=== PATIENT | female | born 2000 | race Caucasian/White ===

== ENCOUNTER → 2019-07-22 10:44 | Outpatient (CLI) | payer OTHER, SELFPAY ==
--- NOTE | 2019-07-22 | DI.CT.S_ITS ---
PROCEDURE: CT SINUS SCREEN WO CON INDICATIONS: Other chronic sinusitis TECHNIQUE: Noncontrast 3.0 mm axial images acquired from the frontal sinuses to the mid-sella, with coronal and sagittal reformats. For radiation dose reduction, the following was used: automated exposure control, adjustment of mA and/or kV according to patient size. COMPARISON: None. FINDINGS: Image quality: Excellent. Maxillary Sinuses: No bony remodeling or destruction. Sinuses are clear. Ethmoid Air Cells: No bony remodeling or destruction. Sinuses are clear. Sphenoid Sinuses: No bony remodeling or destruction. Sinuses are clear. Frontal Sinuses: No bony remodeling or destruction. Sinuses are clear. Ostiomeatal Complexes: Ostiomeatal complexes are patent. No Kamran cells. Miscellaneous: Visualized intra-orbital contents are normal. No tex bullosa or paradoxical turbinate curvature. There is mild to moderate leftward nasal septal deviation. IMPRESSION: No significant active paranasal sinus disease is seen. [id number] leftward nasal septal deviation is noted. Dictated by: Andres Hogan M.D. on 07/22/2019 at 10:12 Approved by: Andres Hogan M.D. on 07/22/2019 at 10:13
== END ==
PROVIDERS: PCP Family Medicine; Visit Provider Otolaryngology
DX: J32.8 Other chronic sinusitis (principal); J34.2 Deviated nasal septum
CPT/HCPCS: 70486

== ENCOUNTER → 2020-12-16 16:55 | Outpatient (CLI) | payer OTHER, SELFPAY ==
[2020-12-16] MEDS: COVID-19 VACC #1, MRNA(MOD) 100 MCG/0.5 ML VIAL IM (17:03)
== END ==
PROVIDERS: PCP Family Medicine; Visit Provider Internal Medicine
DX: Z23 Encounter for immunization (principal)
CPT/HCPCS: 0011A; 91301

== ENCOUNTER 2022-12-26 22:15 | Emergency (ER) | payer OTHER, SELFPAY ==
[2022-12-26 22:41] VITALS: BP 123/62; PULSE 65; RESP 16; TEMP 36.6; O2SAT 99; BMI 26.6
--- NOTE | 2022-12-27 00:29 | ED.WOUNDLAC ---
HPI - Wound/Laceration General Chief Complaint: Wound/Laceration Stated Complaint: cut finger rt hand Time Seen by Provider: 12/27/22 00:28 Source: patient Mode of arrival: Ambulatory History of Present Illness HPI narrative: 22-year-old female nonsmoker with up-to-date tetanus presents with mother and a chief complaint of an accidental laceration to her right index finger earlier today. She was using a sharp kitchen knife when it slipped and she suffered this laceration. She has full, painless range of motion. She denies any numbness, tingling or weakness. Related Data Allergies Allergy/AdvReac Type Severity Reaction Status Date / Time No Known Drug Allergies Allergy Verified 12/26/22 22:41 Review of Systems Review of Systems Narrative: GENERAL: Denies chills, fatigue, malaise, fever, sweats. HEENT: Denies sinus pain, ear pain, sore throat, difficulty swallowing, dizziness. RESPIRATORY: Denies dyspnea, cough, wheezing, hemoptysis, sputum. CARDIOVASCULAR: Denies chest pain, palpitations, orthopnea, edema, GASTROINTESTINAL: Denies nausea, vomiting, abdominal pain, diarrhea, constipation, melena. : Denies dysuria, frequency, incontinence, hematuria, urinary retention. MUSCULOSKELETAL: denies weakness, joint pain, or bony pain SKIN: See HPI NEUROLOGIC: Denies weakness, headache, numbness, change in speech, confusion, seizures, incoordination. PSYCHIATRIC: No concerning psychosocial issues. 12 point review of systems is negative except for those stated above Patient History Social History Smoking Status: Never smoker Smoking Status: Never smoker Substance Use Type: does not use Exam Narrative Exam Narrative: GEN: AOx3 and in mild distress EYES: Pupils are equal, round, and reactive to light and accommodation. Extraoccular muscles are intact bilaterally. There is no subconjunctival hemorrhage or exudate. CHEST: Lungs are clear to auscultation bilaterally and free of wheezes, rales, or rhonchi. Heart rate is regular rhythm, there are no murmurs, clicks, rubs, or gallops. There is no chest wall tenderness. ABD: Abdomen is soft and nontender. There is no guarding or rebound. Bowel sounds are normal in all 4 quadrants. There is no mass or organomegaly. EXT: Full painless ROM of all extremities with no loss of sensation or strength. SKIN: 1.3cm superficial laceration on proximal right index finger, no foreign body, no tendon involvement Warm, pink, and dry. No erythema or rash Initial Vital Signs Initial Vital Signs: Vital Signs Temperature 97.8 F 12/26/22 22:41 Pulse Rate 65 12/26/22 22:41 Respiratory Rate 16 12/26/22 22:41 Blood Pressure 123/62 12/26/22 22:41 Pulse Oximetry 99 12/26/22 22:41 Oxygen Delivery Method Room Air 12/26/22 22:41 Procedures Laceration Repair Laceration 1: Site: hand Side (If applicable): right Size (cm): 1.3 Description: linear Depth: simple, single layer Local Anesthetic: lidocaine 2% Amount of anesthesia used (mL): 3 Pre-repair: wound explored and cleansed with chlorhexadine Skin layer closed with: nylon Skin layer suture size: 5-0 Number of sutures: 3 Technique: simple, interrupted Course Orders Ordered: Discontinued Medications Lidocaine HCl (Lidocaine 2% Inj Sdv 5ml) 5 ml TOP NOW ONE Stop: 12/27/22 00:37 Last Admin: 12/27/22 00:38 Dose: 5 ml Vital Signs Vital signs: Vital Signs - 8 hr 12/26/22 22:41 Temperature 97.8 F Pulse Rate 65 Respiratory Rate 16 Blood Pressure 123/62 Pulse Oximetry 99 Oxygen Delivery Method Room Air MDM - Wound/Laceration MDM Narrative Medical decision making narrative: [22] year old patient presents with accidental laceration to right index finger, no numbness or tingling Multiple etiologies for patient's symptoms considered including, but not limited to: [Laceration versus other] Prior Charts reviewed in our EMR Primary Historian: patient Patient's symptoms improved over duration of stay with above-stated therapies. Findings and discharge diagnosis discussed with patient/family followed by verbalization of understanding Return precautions discussed with patient/family whom verbalize understanding of diagnosis and plan Discharge Plan Departure Patient Disposition: Home Clinical Impression: Laceration Instructions: DI for Laceration Repair Activity Restrictions/Additional Instructions: Please keep the wound clean and dry to the best of your ability. Please monitor for signs of infection such as redness to the skin or increasing pain. Have the sutures/toni removed by your doctor in about 7 days. If you are unable to get into your doctor, we would be happy to remove the sutures/toni in that same timeframe. Referrals: Radha Dougherty MD [Primary Care Provider] - Stand Alone Forms: Patient Portal/API
[2022-12-27] MEDS: LIDOCAINE 2% INJ SDV 5ML 5 ML TOP (00:38)
[2022-12-27 00:49] VITALS: BP 118/59; PULSE 82; RESP 18; O2SAT 100
== END 2022-12-27 00:52 | disposition home or self-care (01) ==
PROVIDERS: Emergency Provider Emergency Medicine; PCP Family Medicine
DX: S61.210A Laceration without foreign body of right index finger without damage to nail, initial encounter (principal); W26.0XXA Contact with knife, initial encounter
CPT/HCPCS: 12001; 99283